=== PATIENT | female | born 1935 | race Caucasian/White ===

== ENCOUNTER 2016-02-26 09:32 | Emergency (ER) | payer MEDICARE, OTHER ==
[2016-02-26 10:04] VITALS: TEMP 97.9; BMI 23.8
[2016-02-26 10:07] LABS: AUTOMATED BASOPHIL 0.5 % (0-2); AUTOMATED LYMPH 25.2 % (17-44); AUTOMATED NEUTROPHIL 67.3 % (45-76); MPV 6.1 fL (7.4-10.4)
[2016-02-26 10:18] LABS: PARTIAL THROMB. TIME 24.6 SEC (22-35); PT-INR 1.1
[2016-02-26] MEDS ORDERED: NS 1,000 ML IV ONE (10:19)
[2016-02-26 10:25] LABS: BLOOD UREA NITROGEN 17 MG/DL (7-17); CALCIUM 9.4 MG/DL (8.4-10.2); CALCULATED OSMOLALITY 269 MOs/Kg (270-290); CHLORIDE 98 mEq/L (98-107); GLUCOSE 115 MG/DL (70-99); SODIUM LEVEL 138 mEq/L (137-146); TOTAL PROTEIN 7.2 G/DL (6.3-8.2)
--- NOTE | 2016-02-26 10:37 | EDPRACDOC ---
- General Information Stated Complaint: UPPER RIB CAGE PAIN/ WEAKNESS Time Seen by Provider: 02/26/16 09:49 Information Source: Patient, Family Home Medications: Home Medications Aspirin 325 mg PO DAILY 12/18/12 Calcium/Magnesium/Zinc [Fcxfceb-Rdzarekvy-Ruyv Tab (333/133/5mg)] 1 tab PO BID 12/18/12 Cholecalciferol (Vitamin D3) [Vitamin D3 (cholecalciferol)] 2,000 unit PO DAILY 12/18/12 Ferrous Sulfate [Iron] 325 mg PO BID 12/18/12 Lutein 6 mg PO DAILY 12/18/12 Metoprolol Tartrate [Lopressor] 100 mg PO BID 12/18/12 Pravastatin [Pravachol] 20 mg PO HS 12/18/12 Benzonatate 200 mg PO TID PRN 02/26/16 Ciprofloxacin HCl [Cipro] 500 mg PO BID #20 tab 02/26/16 [place]-3 Fatty Acids [[place]-3] 100 mg PO BID 02/26/16 Trazodone HCl [Desyrel] 50 mg PO QHS 02/26/16 Allergies/Adverse Reactions: Allergies Allergy/AdvReac Type Severity Reaction Status Date / Time Penicillins Allergy See Verified 02/26/16 10:30 Comments Sulfa (Sulfonamide Allergy Rash-Genera Verified 02/26/16 10:05 Antibiotics) lized - History of Present Illness Onset: 2 weeks Exact Onset of Symptoms: Unknown HPI: FEELS NERVOUS AND WEAK FOR TWO WEEKS. DECREASED APPETITE. NO PAIN IN RIB CAGE ON MY HISTORY Symptoms Started: Reports: Gradually Weakness: Bilateral: Generalized Symptoms: Reports: Weak Associated signs and symptoms:: Reports: None ED Past Medical History - History Reviewed Yes Nurses notes reviewed and agree except as marked - Patient Medical History Cardiac History: Reports: Hypertension, Hypercholesterolemia GI/ History: Reports: Urinary Tract Infection Musculoskeletal History: Reports: Arthritis Psychological History: Denies: Depression Systemic History: Reports: Anemia. Denies: Cancer Surgical History: Reports: Appendectomy, Hysterectomy - Social Medical History Smoking Status: Never smoker EDM Review of Systems - Review of Systems ROS Negative Except as Marked: Yes All systems reviewed and were negative except as marked - Physical Exam Constitutional: Alert (Awake), No apparent distress Oriented to: Time, Person, Place Last recorded Vital Signs: Last Vital Signs Temp 97.9 F 02/26/16 09:40 Pulse 65 02/26/16 10:23 Resp 18 02/26/16 10:23 BP 203/93 H 02/26/16 10:23 Pulse Ox 98 02/26/16 10:23 Oxygen Pulse Oxygen Saturation 98 O2 Device Room Air Oxygen Flow Rate Fraction of Inspired Oxygen ( FIO2) - HEENT Head: Normal ( normocephalic) Eye Exam: Normal (PERRL, EOMI, Sclera white) Oropharynx: Normal (Pharynx:Moist without exudate,Gums-no swelling) Tympanic Membrane: Normal ENT EAC: Normal TMJ: Normal Nose: No Symptoms Reported (septum midline) Neck: Normal (FROM, trachea at midline) - Respiratory/Cardiovascular Respiratory: Normal - CTA (BBS clear to auscultation without adventitious sounds ) Cardiovascular: Normal (RRR without murmur, gallop or rub) - GI Auscultation: Normal (NABS) Palpation: Normal (Soft,No rebound or guarding, non distended) Tenderness: Non tender Samson's Sign: Negative - Musculoskeletal Back: Normal (Non-Tender) Extremities: Normal (Normal tone, Pulses 2+ No cyanosis or edema, FROM) - Integumentary Skin: Normal, Warm, Dry Lymphatics: Normal (no adenopathy) - Neurologic Memory Impaired: Normal Motor Function: Normal (Normal tone, Pulses 2+ No cyanosis or edema, FROM) Cranial Nerve: Normal (CN II-X11 intact sensation, strength 5/5) Cerebellar: Normal Mood Description: Normal Perception: Normal - Results 02/26/16 09:55 02/26/16 09:55 WBC 5.2 xk/uL (3.8-10.8) 02/26/16 09:55 RBC 4.15 xM/uL (4.20-5.40) L 02/26/16 09:55 Hgb 11.2 g/dL (12.0-16.0) L 02/26/16 09:55 Hct 34.2 % (36-47) L 02/26/16 09:55 MCV 82 fL (81-99) 02/26/16 09:55 MCH 27.0 pg (27-32) 02/26/16 09:55 MCHC 32.9 g/dl (33-36) L 02/26/16 09:55 RDW 15.0 % (11.5-14.5) H 02/26/16 09:55 Plt Count 181 xk/uL (130-400) 02/26/16 09:55 MPV 6.1 fL (7.4-10.4) L 02/26/16 09:55 Neut % (Auto) 67.3 % (45-76) 02/26/16 09:55 Lymph % (Auto) 25.2 % (17-44) 02/26/16 09:55 [place] % (Auto) 6.0 % (3-10) 02/26/16 09:55 Eos % (Auto) 1.0 % (0-5) 02/26/16 09:55 Baso % (Auto) 0.5 % (0-2) 02/26/16 09:55 Absolute Neuts (auto) 3.48 xk/uL (1.7-8.2) 02/26/16 09:55 Absolute Lymphs (auto) 1.30 xk/uL (0.65-4.75) 02/26/16 09:55 PT 11.1 SEC (9.2-11.2) 02/26/16 09:55 INR 1.1 02/26/16 09:55 APTT 24.6 SEC (22-35) 02/26/16 09:55 Lab Results 02/26/16 02/26/16 09:55 09:55 WBC 5.2 RBC 4.15 L Hgb 11.2 L Hct 34.2 L MCV 82 MCH 27.0 MCHC 32.9 L RDW 15.0 H Plt Count 181 MPV 6.1 L Neut % (Auto) 67.3 Lymph % (Auto) 25.2 [place] % (Auto) 6.0 Eos % (Auto) 1.0 Baso % (Auto) 0.5 Absolute Neuts (auto) 3.48 Absolute Lymphs (auto) 1.30 PT 11.1 INR 1.1 APTT 24.6 - EKG EKG #1 [place]: Normal Rhythm: NSR Block: None Hypertrophy: None ST: Normal - Additional Information CT HEAD NOT ORDERED BY ME. PT IS ORTHOSTATIC AND JUST NEEDS TO INCREASE FLUID INTAKE. UA MACHINE NO WORKING. DISCHARGE DELAY SECONDARY TO LACK OF RESULTS Decision Time to Discharge: 12:47 - Departure Yes I personally saw and evaluated the patient. Disposition: Home Condition: Good Final Diagnosis: WEAKNESS, DEHYDRATION, UTI Instructions: Weakness (ED) Education/Counseling Given To: Patient, Family Member Education/Counseling Given Regarding: Diagnosis, Treatment, Prognosis Referrals: Brenda Brunner DO [Primary Care Provider] - One Week Prescriptions: Ciprofloxacin HCl [Cipro] 500 mg PO BID #20 tab
[2016-02-26] MEDS ORDERED: LORAZEPAM 2 MG/ML VIAL IV ONE (10:53)
--- NOTE | 2016-02-26 11:07 | DIRPT ---
CLINICAL DATA: Generalized weakness for 2 weeks. History of Sinus infection. EXAM: CT HEAD WITHOUT CONTRAST TECHNIQUE: Contiguous axial images were obtained from the base of the skull through the vertex without intravenous contrast. COMPARISON: None. FINDINGS: No evidence for acute infarction, hemorrhage, mass lesion, hydrocephalus, or extra-axial fluid. Normal for age cerebral volume. Hypoattenuation of white matter, likely small vessel disease. Calvarium intact. Scalp soft tissues unremarkable. BILATERAL cataract extraction. No visible sinus or mastoid fluid. IMPRESSION: Mild atrophy and small vessel disease, consistent with patient's stated age. No acute intracranial findings are evident. No visible sinus fluid accumulation. Electronically Signed By: Ricci Ocampo M.D. On: 02/26/2016 11:04
--- NOTE | 2016-02-26 11:14 | DIRPT ---
CLINICAL DATA: Recent sinus infection, now having weakness and intermittent chest heaviness, imbalance, nervousness, does not feel RIGHT EXAM: CHEST 2 VIEW COMPARISON: None available. FINDINGS: Normal heart size, mediastinal contours, and pulmonary vascularity. Lungs hyperinflated but clear. No pulmonary infiltrate, pleural effusion or pneumothorax. Bones demineralized with scattered degenerative disc disease changes thoracic spine. Mild atherosclerotic calcification aorta. IMPRESSION: Pulmonary hyperinflation without infiltrate. Electronically Signed By: Fabian Chopra M.D. On: 02/26/2016 11:11
[2016-02-26 12:18] LABS: RBC/URINE 0-2 (0-5)
[2016-02-26 12:37] LABS: LEUKOCYTES/URINE 1+ (NEGATIVE); NITRITE/URINE NEG (NEGATIVE); URINE OCCULT BLOOD NEG (NEG/TRACE)
[2016-02-26 12:46] VITALS: PULSE 74
[2016-02-26 13:20] VITALS: BP 217/94
== END 2016-02-26 13:19 | disposition home or self-care (01) ==
LOC: ED 09:32
DX: N39.0 Urinary tract infection, site not specified (principal); E86.0 Dehydration; R53.1 Weakness
CPT/HCPCS: 36415; 70450; 71020; 80053; 81001; 83880; 84484; 85025; 85610; 85730; 93005; 96361; 96374; 99284; J2060